=== PATIENT | female | born 1965 | race Caucasian/White ===

== ENCOUNTER 2017-07-19 08:38 | Emergency (ER) | payer MEDICAID ==
--- NOTE | 2017-07-19 09:03 | EDPHY ---
H & P Stated Complaint: blurred vision Time Seen by Provider: 07/19/17 08:58 HPI/ROS: CHIEF COMPLAINT: Referred to ED for evaluation of abnormal vision HISTORY OF PRESENT ILLNESS: The patient is referred to the emergency department by her automatic head sawyer for abnormal vision. The patient has had a history of worsening visual acuity. She reportedly saw an automatic head sawyer and was diagnosed with a quadrantopia. The patient denies any complaints of acute headache. She denies peripheral numbness or weakness. She was referred to the ED for a stat MRI to exclude the possibility of a SHEEP SORTER lesion. The patient denies significant past medical history. The patient denies any history of fall or trauma. She denies neck pain or history of cervical manipulation. REVIEW OF SYSTEMS: A comprehensive 10 point review of systems is otherwise negative aside from elements mentioned in the history of present illness. Source: Patient Exam Limitations: No limitations - Personal History LMP (Females 10-55): Post Menopausal Current Tetanus/Diphtheria Vaccine: Yes Current Tetanus Diphtheria and Acellular Pertussis (TDAP): Yes - Medical/Surgical History Hx Asthma: No Hx Chronic Respiratory Disease: No Hx Diabetes: No Hx Cardiac Disease: No Hx Renal Disease: No Hx Cirrhosis: No Hx Alcoholism: No Hx HIV/AIDS: No Hx Splenectomy or Spleen Trauma: No Other PMH: concussion 2004, appy, - Social History Smoking Status: Never smoked - Physical Exam Exam: General Appearance: Thin female, no acute distress Eyes: Pupils equal and round no pallor or injection ENT, Mouth: Mucous membranes moist Respiratory: There are no retractions, lungs are clear to auscultation Cardiovascular: Regular rate and rhythm Gastrointestinal: Abdomen is soft and nontender, no masses, bowel sounds normal Neurological: A&O, normal motor function, normal sensory exam, normal cranial nerves Skin: Warm and dry, no rashes Musculoskeletal: Neck is supple nontender Extremities: symmetrical, full range of motion Constitutional: Initial Vital Signs Temperature (C) 36.4 C 07/19/17 08:47 Heart Rate 69 07/19/17 08:47 Respiratory Rate 16 07/19/17 08:47 Blood Pressure 121/68 H 07/19/17 08:47 O2 Sat (%) 97 07/19/17 08:47 O2 Delivery Mode Room Air Allergies/Adverse Reactions: No Known Allergies Allergy (Unverified 07/19/17 08:47) Home Medications: Medication Instructions Recorded NK [No Known Home Meds] 07/19/17 Medical Decision Making - Diagnostics Imaging Results: Imaging Impressions Brain MRI 07/19/17 09:14 Impression: 1. Possible small left pituitary microadenoma. This can be followed on subsequent MRI as clinically directed. Endocrinologic workup is also suggested. 2. Likely incidental, right cerebral peduncle finding. 3. No source for visual change (quadrantopia) identified. I reviewed this with Dr. Herrera, who is in agreement. Results called and discussed with Dillon Johnson, at 07/19/2017 11:37 ED Course/Re-evaluation: The patient presents to the ED for evaluation of intermittent blurry vision over the past several weeks. She reportedly was noted to have a possible quadrantopia by her automatic head sawyer. She was referred to the ED for an MRI for further evaluation. The patient's MRI demonstrates no obvious explanation for a visual field cut her vision loss. The patient's neurologic examination is otherwise unremarkable. At this point time I do not feel further workup is indicated and she continue to work with her automatic head sawyer for further evaluation. Differential Diagnosis: Differential diagnosis considered includes SHEEP SORTER lesion, stroke, multiple sclerosis, glaucoma Departure - Departure Disposition: Home, Routine, Self-Care Clinical Impression: Visual changes Condition: Good Instructions: Blurred Vision (ED) Additional Instructions: 1. Your brain MRI demonstrates no obvious abnormality. 2. Please follow up with Dr. Veronica as scheduled. 3. Please return to the ED for severe headache, new numbness, weakness or other concerns. Referrals: Shelly Buckley MD [Primary Care Provider] - As per Instructions
[2017-07-19] MEDS ORDERED: GADOBUTROL 10 ML VIAL IVP ONE (09:45)
[2017-07-19 12:17] VITALS: BP 100/88; PULSE 62; RESP 18; TEMP 98.1; O2SAT 98
== END 2017-07-19 12:18 | disposition home or self-care (01) ==
DX: H53.9 Unspecified visual disturbance (principal)
CPT/HCPCS: A9585

== ENCOUNTER → 2017-08-22 | Outpatient (CLI) | payer OTHER, MEDICAID | LOC: FIMAGING 08:42 | PROVIDERS: ATTEND Family Medicine | DX: Z13.820 Encounter for screening for osteoporosis (principal); M81.0 Age-related osteoporosis without current pathological fracture; Z78.0 Asymptomatic menopausal state ==